=== PATIENT | female | born 1990 | race Caucasian/White ===

== ENCOUNTER 2022-07-19 05:45 | Emergency (ER) | payer OTHER ==
[~2022-07-19] VITALS: Ht 170.2 cm; Wt 54.4 kg
[2022-07-19 05:59] VITALS: BP 104/67
--- NOTE | 2022-07-19 05:59 | NUR ---
BIBS. L SIDE NECK TIGHTNESS. PT A/OX4. TOLERATING R/A WELL WITH NO RESP DISTRESS. AMB WITH STEADY GAIT. SAFETY MEASURES IN PLACE.
--- NOTE | 2022-07-19 06:05 | NUR ---
BIBS. TO ER BED 10. AAOX4. NOT IN RESP DISTRESS. AMBULATORY. CAME IN FOR NECK TIGHTNESS SINCE 1999 LAST NIGHT. PER PT SHE HAVE A TETHERED SPINAL CORD AND PAIN HAVENT HAPPENED FOR AWHILE. WAS AT THE BEDSIDE FOR EVAL.AWAITING FOR ORDERS
[2022-07-19] MEDS ORDERED: CYCL10TA9 PO (06:19)
== END 2022-07-19 06:27 | disposition home or self-care (01) ==
LOC: ER 05:52
DX: M62.838 Other muscle spasm (principal); Z88.0 Allergy status to penicillin; Z79.899 Other long term (current) drug therapy